=== PATIENT | female | born 1955 | race Caucasian/White ===

== ENCOUNTER 2022-09-16 06:27 | Observation (INO) ==
[~2022-09-16 06:27] MED LIST: Buffered Lidocaine 1% SYRIN 1 ml INTRADERM ONE; Lactated Ringers 1000 ml BAG 1,000 ML IV SCH
[2022-09-16] MEDS ORDERED: Midazolam 2 mg/2 ml VIAL 1 mg/ml 2 ml VIAL (2 mg) ONE (06:46)
[2022-09-16] MEDS ORDERED: fentaNYL 100 mcg/2 ml 50 MCG/ML VIAL ONE ×3 (06:46→12:28)
[2022-09-16] MEDS ORDERED: Dexamethasone IV 4 MG/ML VIAL 1 ml VIAL ONE (06:46)
[2022-09-16] MEDS ORDERED: Propofol 0 MG/0 ML BTL ONE (06:46)
[2022-09-16] MEDS ORDERED: Ondansetron 4 mg VIAL 2 MG/ML 2 ml VIAL ONE ×2 (06:46→12:26)
[2022-09-16] MEDS ORDERED: Lidocaine 2% PF 5 ML VIAL ONE (06:46)
[2022-09-16] MEDS ORDERED: Acetaminophen IV 1 GM/100ML 1,000 MG/100 ML BAG IV ONE ×2 (06:46→08:16)
[2022-09-16] MEDS ORDERED: Bupivacaine 0.5% PF 10 ML SDV VIAL INJ ONE (06:47)
[2022-09-16] MEDS ORDERED: ceFAZolin 2 GM in NS PREMIX 2 GM/100 ML BAG IVPB ONE (07:03)
[2022-09-16] MEDS ORDERED: HYDROmorphone 1 MG/1 ML SYRINGE IV PRN (08:11)
[2022-09-16] MEDS ORDERED: Naloxone 0.4 mg VIAL 0.4 mg/ml 1 ml VIAL IV PRN (08:11)
[2022-09-16] MEDS ORDERED: Acetaminophen IV 1 GM/100ML 1,000 MG/100 ML BAG IV PRN (08:11)
[2022-09-16] MEDS ORDERED: Ondansetron 4 mg VIAL 2 MG/ML 2 ml VIAL IV PRN ×2 (08:11→11:49)
[2022-09-16] MEDS ORDERED: Propofol 10 MG/ML 20 ML BTL ONE (08:16)
[2022-09-16] MEDS ORDERED: Rocuronium 50 mg VIAL 10 mg/ml 5 ml VIAL (50 mg) ONE ×2 (08:16→09:39)
[2022-09-16] MEDS ORDERED: Sterile Water for Inj 10 ML ONE (09:17)
[2022-09-16] MEDS ORDERED: Phenylephrine IV 10 MG/ML 1 ml VIAL ONE (09:36)
[2022-09-16] MEDS ORDERED: HYDROmorphone 0.5 MG/0.5 ML SYRINGE ONE (09:51)
[2022-09-16] MEDS ORDERED: Glycopyrrolate IV 0.2 MG/ML 1 ML VIAL ONE (10:26)
[2022-09-16] MEDS ORDERED: ROPIVACAINE 5 MG/ML 30 ML BTL (0.5%) ONE (11:26)
[2022-09-16] MEDS ORDERED: Magnesium Hydroxide LIQ 30 ML UDC PO PRN (11:49)
[2022-09-16] MEDS ORDERED: Ondansetron ODT 4 mg TAB 4 MG TAB PO PRN (11:49)
[2022-09-16] MEDS ORDERED: Morphine 2 MG/ML SYRINGE IV PRN (11:49)
[2022-09-16] MEDS ORDERED: Lactulose 30 ml UDC PO PRN (11:49)
[2022-09-16] MEDS: fentaNYL 100 mcg/2 ml 50 MCG/ML VIAL IV PRN ×2 (12:33→13:58)
[2022-09-16] MEDS ORDERED: Dextrose 50% Syringe 50 ml 25 GM/50 ML SYRINGE IV PUSH PRN (13:21)
[2022-09-16] MEDS: Lactated Ringers 1000 ml BAG 1,000 ML IV SCH (14:45)
[2022-09-16] MEDS ORDERED: Metoclopramide 5 MG/ML VIAL (10 mg) IV ONE (17:14)
[2022-09-16] MEDS: ceFAZolin 1 GM ADVAN 1 GM in NS 0.9% 50 ML 50 ML IVPB SCH (17:20)
[2022-09-16] MEDS ORDERED: Scopolamine 1 mg/72hr PATCH TRANSDERM ONE (19:00)
[2022-09-16] MEDS: Magnesium Hydroxide LIQ 30 ML UDC PO SCH (20:24)
[2022-09-17] MEDS: ceFAZolin 1 GM ADVAN 1 GM in NS 0.9% 50 ML 50 ML IVPB SCH ×2 (01:13→08:27)
[2022-09-17] MEDS: Lactated Ringers 1000 ml BAG 1,000 ML IV SCH ×3 (01:56→17:39)
[2022-09-17 06:02] LABS: Hematocrit 36 % (35-47); Hemoglobin 11.9 g/dL (12.0-16.0); Mean Platelet Volume 8.5 fL (7.4-10.4); Platelet Count 182 10^3/uL (150-450)
[2022-09-17 06:18] LABS: Calcium 8.9 mg/dL (8.6-10.3); Creatinine, Serum 0.84 mg/dL (0.51-0.95); Potassium 4.4 mmol/L (3.5-5.0); eGFR CKD-EPI 75.2 (>60)
[2022-09-17] MEDS ORDERED: Lactated Ringers 1000 ml BAG 500 ML IV ONE (07:35)
[2022-09-17] MEDS: Vitamin THERAPEUTIC TAB PO SCH (08:23)
[2022-09-17] MEDS: Magnesium Hydroxide LIQ 30 ML UDC PO SCH ×2 (08:23→21:38)
[2022-09-18] MEDS: Lactated Ringers 1000 ml BAG 1,000 ML IV SCH (03:51)
[2022-09-18 05:43] LABS: Hematocrit 33 % (35-47); Hemoglobin 11.2 g/dL (12.0-16.0); Mean Platelet Volume 8.2 fL (7.4-10.4); Platelet Count 149 10^3/uL (150-450)
[2022-09-18 07:28] VITALS: BP 138/72
[2022-09-18] MEDS: Magnesium Hydroxide LIQ 30 ML UDC PO SCH (08:15)
[2022-09-18] MEDS: Vitamin THERAPEUTIC TAB PO SCH (08:15)
== END 2022-09-18 11:45 | disposition home or self-care (01) ==
LOC: INTOOBSV 06:27 → AA 06:27 → SSU 14:42
PROVIDERS: ADMIT Orthopaedic Surgery Adult Reconstructive Orthopaedic Surgery; ATTEND Orthopaedic Surgery Adult Reconstructive Orthopaedic Surgery